=== PATIENT | female | born 1990 | race Hispanic/Latino ===

== ENCOUNTER 2021-03-09 20:50 | Emergency (ER) | payer MEDICAID, OTHER ==
[~2021-03-09] VITALS: Ht 154.9 cm; Wt 94.3 kg
[~2021-03-09 20:50] MED LIST: 0.9% NACL 500ML IV.SOLN 500 ML IV ONE
[2021-03-10] VITALS: BP 114/71
[2021-03-10] MEDS ORDERED: 0.9%NACL 1000ML 1,000 ML IV ONE
[2021-03-10] MEDS ORDERED: MORPHINE 4 MG SYG IVP ONE
[2021-03-10] MEDS ORDERED: ONDANSETRON 4MG INJ IVP ONE
[2021-03-10] MEDS ORDERED: IOHEXOL-350 75 ML VIAL IV ONE (00:40)
[2021-03-10 00:43] LABS: CREATININE 0.9 mg/dL (0.5-1.5); POTASSIUM 3.6 mmol/L (3.5-5.1)
[2021-03-10 00:49] LABS: ALBUMIN 3.4 g/dL (3.5-5.0); BILIRUBIN,TOTAL 0.1 mg/dL (0.2-1.0); EOSINOPHILS % (AUTO) 2.5 % (0.0-8.0); HEMATOCRIT 38.6 % (36-48); MEAN CORPUSCULAR HEMOGLOBIN 31.2 pg (27.0-33.0); MEAN CORPUSCULAR HGB CONC 32.9 g/dL (32.0-36.0); MEAN CORPUSCULAR VOLUME 94.8 fL (79-99); MONOCYTES % (AUTO) 8.6 % (3.0-13.0); NEUTROPHILS % (AUTO) 50.4 % (40.0-77.0); PLATELET COUNT (AUTO) 186 K/uL (130-400); RED BLOOD CELL COUNT(AUTO) 4.07 MIL/uL (4.00-5.50); TOTAL PROTEIN, SERUM 6.4 g/dL (6.0-8.3)
[2021-03-10 01:10] LABS: BILIRUBIN,URINE Negative (NEGATIVE); COLOR,URINE Yellow (YELLOW); GLUCOSE, URINE (UA) Negative (NEGATIVE); KETONES,URINE Negative (NEGATIVE); LEUKOCYTE ESTERASE ,URINE Moderate (NEGATIVE); NITRATE,URINE Negative (NEGATIVE); OCCULT BLOOD,URINE Negative (NEGATIVE); PROTEIN,URINE Negative (NEGATIVE)
[2021-03-10 01:12] LABS: HCG,QUAL RESULT NEGATIVE (NEGATIVE)
[2021-03-10 01:13] LABS: APPEARANCE,URINE SLIGHTLY CLOUDY (CLEAR)
[2021-03-10 01:22] LABS: AMPHET/METH SCREEN,URINE NEGATIVE (NEGATIVE); BARBITURATE SCREEN, URINE NEGATIVE (NEGATIVE); BENZODIAZEPINES SCREEN,URINE POSITIVE (NEGATIVE); CANNABINOID SCREEN,URINE NEGATIVE (NEGATIVE); COCAINE SCREEN,URINE NEGATIVE (NEGATIVE); OPIATE SCREEN,URINE NEGATIVE (NEGATIVE); PHENCYCLIDINE SCREEN,URINE NEGATIVE (NEGATIVE)
[2021-03-10 01:57] LABS: RBC,URINE 0-1 /HPF (0-1)
[2021-03-10 01:58] LABS: BACTERIA,URINE Few /HPF (None Seen); MUCUS,URINE Rare LPF (None Seen)
[2021-03-10 03:46] VITALS: BP 119/72
== END 2021-03-10 03:48 | disposition home or self-care (01) ==
LOC: EDH 20:50
DX: R10.9 Unspecified abdominal pain (principal); R19.7 Diarrhea, unspecified; R11.0 Nausea; F31.9 Bipolar disorder, unspecified; F41.9 Anxiety disorder, unspecified; Z79.899 Other long term (current) drug therapy; Z90.49 Acquired absence of other specified parts of digestive tract
CPT/HCPCS: 36415; 74177; 80053; 80305; 81001; 81025; 83690; 85025; 86677; 87088; 96361; 96374; 96375; 99285; J2270; J2405; J7040; Q9967

== ENCOUNTER 2021-04-29 16:44 | Emergency (ER) | payer OTHER ==
[~2021-04-29] VITALS: Ht 154.9 cm; Wt 90.7 kg
[2021-04-29 20:51] VITALS: BP 145/60
[2021-04-29] MEDS ORDERED: KETOROLAC 15MG/ML VIAL (15MG/ML) IV ONE (21:30)
[2021-04-29] MEDS ORDERED: PROCHLORPERAZINE 10MG/2ML INJ IM ONE (21:30)
[2021-04-29] MEDS ORDERED: DiphenhydrAMINE HCL 50 MG/ML VIAL IV ONE (21:30)
[2021-04-29 23:23] VITALS: BP 135/54
[2021-04-30] MEDS ORDERED: PROC5TAB54 PO (00:10)
[2021-04-30] MEDS ORDERED: FAMO-136 PO (00:13)
== END 2021-04-30 00:27 | disposition home or self-care (01) ==
LOC: EDH 16:44
DX: K52.9 Noninfective gastroenteritis and colitis, unspecified (principal); G43.909 Migraine, unspecified, not intractable, without status migrainosus; Z79.1 Long term (current) use of non-steroidal anti-inflammatories (NSAID)
CPT/HCPCS: 96372; 96374; 96375; 99284; J0780; J1200; J1885